=== PATIENT | male | born 1985 | race African-American/Black ===

== ENCOUNTER 2025-01-02 10:39 | Emergency (ER) | payer OTHER | END 2025-01-02 11:43 | disposition home or self-care (01) | LOC: ERS 10:39 | DX: M54.2 Cervicalgia (principal); M79.631 Pain in right forearm; M79.632 Pain in left forearm; V68.5XXA Driver of heavy transport vehicle injured in noncollision transport accident in traffic accident, initial encounter; Y93.89 Activity, other specified | CPT/HCPCS: 70450; 71045; 72125 ==

== ENCOUNTER 2025-08-11 16:07 | Outpatient (CLI) | payer OTHER | END 2025-08-11 16:08 | disposition home or self-care (01) | LOC: RAD 16:07 | PROVIDERS: ATTEND Family Medicine | DX: M25.511 Pain in right shoulder (principal) ==